=== PATIENT | female | born 1965 | race African-American/Black ===

== ENCOUNTER 2018-08-12 09:45 | Emergency (ER) | payer MEDICARE, MEDICAID ==
[~2018-08-12] VITALS: Ht 160 cm; Wt 90.0 kg
[~2018-08-12 09:45] MED LIST: SEROQUEL; UNK HTN MEDS; [UNRECOGNIZED DRUG - CODE]
[2018-08-12] MEDS ORDERED: HYDROCODONE/ACETAMINOPHEN 5/325MG TABLET PO STA (10:29)
[2018-08-12 11:58] LABS: BASOPHILS % 0.8 % (0.0-2.0); EOSINOPHILS % 0.6 % (0.0-5.0); HEMATOCRIT. 37.8 % (36.0-48.0); HEMOGLOBIN. 12.4 g/dL (12.0-16.0); LYMPHOCYTES % 24.9 % (20.0-50.0); MEAN CORPUSCULAR HEMOGLOBIN 27.9 pg (28.0-32.0); MEAN CORPUSCULAR VOLUME 85.5 fL (81.0-99.0); MEAN PLATELET VOLUME 7.9 fl (7.4-10.4); MONOCYTES % 4.8 % (2.0-8.0); NEUTROPHILS % 68.9 % (40.0-76.0); PLATELET 400 x1000/uL (130-400); RED BLOOD CELL COUNT 4.42 mill/uL (4.2-5.4); RED CELL DISTRIBUTION WIDTH 15.9 % (11.6-14.6)
[2018-08-12 12:02] LABS: CHLORIDE 105 mEq/L (98-107)
[2018-08-12 12:08] LABS: PROTHROMBIN TIME 10.4 sec (9.1-11.1)
[2018-08-12 13:00] VITALS: BP 138/65
== END 2018-08-12 13:08 | disposition home or self-care (01) ==
LOC: ER 10:26
DX: M25.512 Pain in left shoulder (principal); R07.89 Other chest pain; E11.9 Type 2 diabetes mellitus without complications; I10 Essential (primary) hypertension; F32.9 Major depressive disorder, single episode, unspecified; M19.90 Unspecified osteoarthritis, unspecified site; Z98.890 Other specified postprocedural states
CPT/HCPCS: 36415; 71045; 73030; 83880; 84484; 93005; 99284

== ENCOUNTER 2019-04-04 12:54 | Emergency (ER) | payer MEDICARE, MEDICAID ==
[~2019-04-04] VITALS: Ht 160 cm; Wt 91.0 kg
[2019-04-04] MEDS ORDERED: ALBUTEROL (0.083%) 2.5MG/3ML NEB HHN STA (14:38)
[2019-04-04] MEDS ORDERED: ALBUTEROL (0.083%) 2.5MG/3ML NEB ONE (15:00)
[2019-04-04 15:51] VITALS: BP 169/91
== END 2019-04-04 15:57 | disposition home or self-care (01) ==
LOC: ER 12:54
DX: J20.9 Acute bronchitis, unspecified (principal); M19.90 Unspecified osteoarthritis, unspecified site; F32.9 Major depressive disorder, single episode, unspecified; I10 Essential (primary) hypertension; M10.9 Gout, unspecified; F17.210 Nicotine dependence, cigarettes, uncomplicated; Z87.828 Personal history of other (healed) physical injury and trauma
CPT/HCPCS: 71045; 94640; 99283; J7611

== ENCOUNTER 2020-09-10 00:04 | Emergency (ER) | payer MEDICARE, MEDICAID ==
[~2020-09-10] VITALS: Ht 160 cm; Wt 93.0 kg
[2020-09-10] MEDS ORDERED: INDOMETHACIN 25MG CAPSULE PO ONE (01:00)
[2020-09-10] MEDS ORDERED: LIDOCAINE HCL 1% 20ML VIAL (Pyxis) INJ INFIL ONE (01:00)
[2020-09-10] MEDS ORDERED: BUPIVACAINE HCL/PF 0.5% (5MG/ML) 10ML INFIL ONE ×2 (01:00→01:30)
[2020-09-10] MEDS ORDERED: IBUPROFEN 600MG TABLET PO ONE (01:00)
[2020-09-10] MEDS ORDERED: ACETAMINOPHEN 325MG TABLET PO ONE (01:00)
[2020-09-10 01:05] VITALS: BP 154/79
[2020-09-10] MEDS ORDERED: BACITRACIN ZINC OINT UDPKT TOP ONE (01:30)
[2020-09-10] MEDS ORDERED: INDO50CA98 MT (01:49)
== END 2020-09-10 02:40 | disposition home or self-care (01) ==
LOC: ER 00:04
DX: M10.062 Idiopathic gout, left knee (principal); E11.9 Type 2 diabetes mellitus without complications; I10 Essential (primary) hypertension; F32.9 Major depressive disorder, single episode, unspecified; Z87.828 Personal history of other (healed) physical injury and trauma
CPT/HCPCS: 20610; 99283; J3490

== ENCOUNTER 2022-03-11 21:20 | Inpatient (IN) | payer MEDICARE, MEDICAID ==
[~2022-03-11] VITALS: Ht 160 cm; Wt 103.1 kg
[~2022-03-11 21:20] MED LIST changes: +INDO50CA98 MT
[2022-03-12] MEDS ORDERED: LABETALOL HCL VIAL 20 MG/4 ML VIAL IV NR (01:30)
[2022-03-12] MEDS ORDERED: ASPIRIN 81MG TABLET PO ONE (01:30)
[2022-03-12] MEDS: ASPIRIN 81MG TABLET PO NR (02:04)
[2022-03-12 02:13] LABS: BASOPHILS % 0.8 % (0.0-2.0); EOSINOPHILS % 1.5 % (0.0-5.0); HEMATOCRIT. 36.9 % (36.0-48.0); HEMOGLOBIN. 12.1 g/dL (12.0-16.0); LYMPHOCYTES % 38.7 % (20.0-50.0); MEAN CORPUSCULAR VOLUME 82.6 fL (81.0-99.0); MEAN PLATELET VOLUME 7.7 fl (7.4-10.4); PLATELET 371 x1000/uL (130-400); RED BLOOD CELL COUNT 4.46 mill/uL (4.2-5.4); RED CELL DISTRIBUTION WIDTH 15.3 % (11.6-14.6)
[2022-03-12 02:23] LABS: CHLORIDE 103 mEq/L (98-107)
[2022-03-12] MEDS ORDERED: NITROGLYCERIN 0.4MG TABLET SL SL ONE (04:00)
[2022-03-12] MEDS ORDERED: IPRATROPIUM/ALBUTEROL 0.5-3(2.5)MG/3ML NEB NEB PRN (07:15)
[2022-03-12] MEDS ORDERED: NA PHOS,M-B/NA PHOS,DI-BA ENEMA 118ML PR PRN (07:15)
[2022-03-12] MEDS ORDERED: NITROGLYCERIN 0.4MG TABLET SL SL PRN (07:15)
[2022-03-12] MEDS ORDERED: ACETAMINOPHEN 325MG TABLET PO PRN ×2 (07:15)
[2022-03-12] MEDS ORDERED: ENOXAPARIN 40MG/0.4ML SYR SUBCUT SCH (07:15)
[2022-03-12] MEDS ORDERED: DOCUSATE SODIUM 100MG CAPSULE PO PRN (07:15)
[2022-03-12] MEDS ORDERED: ONDANSETRON HCL 4MG/2ML INJ IV PRN (07:15)
[2022-03-12] MEDS ORDERED: MAGNESIUM/ALUMINUM HYDROXIDE/SIMETHICONE 30ML UDC PO PRN (07:15)
[2022-03-12 08:00] VITALS: BP 152/83
[2022-03-12] MEDS ORDERED: POTASSIUM CHLORIDE 20MEQ TABLET SR PO SCH (08:00)
[2022-03-12 08:15] LABS: T4 FREE 0.96 ng/dL (0.76-1.46)
[2022-03-12 08:33] LABS: FOLIC ACID (FOLATE) SERUM >20 ng/mL ng/mL (>5.38); VITAMIN B12 SERUM 643 pg/mL (211-911)
[2022-03-12] MEDS: FAMOTIDINE 20MG TABLET PO SCH ×2 (09:59→21:19)
[2022-03-12] MEDS: ENOXAPARIN 30MG/0.3ML SYR SUBCUT SCH ×2 (09:59→21:19)
[2022-03-12] MEDS: AMLODIPINE 10MG TABLET PO SCH (10:01)
[2022-03-12] MEDS: LOSARTAN POTASSIUM 50 MG TABLET PO SCH (10:01)
[2022-03-12] MEDS: KETOROLAC 15MG/ML VIAL IV PRN ×2 (10:09→21:19)
[2022-03-12] MEDS: GUAIFENESIN 200MG/10ML SUGAR FREE UDC PO PRN ×2 (10:19→16:16)
[2022-03-12 12:00] VITALS: BP 155/86
[2022-03-12 16:00] VITALS: BP 160/97
[2022-03-12] MEDS: CLONIDINE 0.1MG TABLET PO PRN (16:13)
[2022-03-12] MEDS ORDERED: ATOR20TA65 PO (17:08)
[2022-03-12] MEDS ORDERED: AMLO10TA80 PO (17:08)
[2022-03-12] MEDS ORDERED: ALLO100T PO (17:08)
[2022-03-12] MEDS ORDERED: DICL100G31 TP (17:08)
[2022-03-12] MEDS ORDERED: [UNRECOGNIZED DRUG - CODE] PO (17:08)
[2022-03-12] MEDS ORDERED: MIRT7.5T11 PO (17:08)
[2022-03-12] MEDS ORDERED: VENL50TA43 PO (17:08)
[2022-03-12] MEDS ORDERED: CHLO25TA2 PO (17:08)
[2022-03-12] MEDS ORDERED: HYDR-4009 PO (17:09)
[2022-03-12 18:54] LABS: CREATINE KINASE 119 IU/L (26-192)
[2022-03-12 18:59] LABS: CREATINE KINASE MB FRACTION < 1.0 ng/mL (0.5-3.6)
[2022-03-12 20:00] VITALS: BP 142/74
[2022-03-12] MEDS: ZOLPIDEM TARTRATE 5MG TABLET PO PRN (21:19)
[2022-03-12] MEDS: ATORVASTATIN CALCIUM 20MG TABLET PO SCH (21:19)
[2022-03-12 23:37] LABS: CREATINE KINASE 109 IU/L (26-192); CREATINE KINASE MB FRACTION < 1.0 ng/mL (0.5-3.6)
[2022-03-13] VITALS: BP 137/72
[2022-03-13] MEDS: ASPIRIN 81MG TABLET PO NR (01:45)
[2022-03-13 02:41] LABS: *AMPHETAMINES SCREEN URINE NEGATIVE (NEGATIVE); *BARBITURATES SCREEN URINE NEGATIVE (NEGATIVE); *BENZODIAZEPINES SCREEN URINE NEGATIVE (NEGATIVE); *COCAINE SCREEN URINE NEGATIVE (NEGATIVE); CANNABINOID URINE SCREEN NEGATIVE (NEGATIVE); METHADONE URINE SCREEN NEGATIVE (NEGATIVE); OPIATES URINE SCREEN NEGATIVE (NEGATIVE); PHENCYCLIDINE URINE SCREEN NEGATIVE (NEGATIVE)
[2022-03-13 04:00] VITALS: BP 134/88
[2022-03-13 08:00] VITALS: BP 148/82
[2022-03-13] MEDS: LOSARTAN POTASSIUM 50 MG TABLET PO SCH ×2 (09:34→17:03)
[2022-03-13] MEDS: AMLODIPINE 10MG TABLET PO SCH (09:34)
[2022-03-13] MEDS: ENOXAPARIN 30MG/0.3ML SYR SUBCUT SCH ×2 (09:34→21:10)
[2022-03-13] MEDS: FAMOTIDINE 20MG TABLET PO SCH ×2 (09:34→21:11)
[2022-03-13 10:54] LABS: BASOPHILS % 0.6 % (0.0-2.0); EOSINOPHILS % 1.8 % (0.0-5.0); HEMATOCRIT. 35.5 % (36.0-48.0); HEMOGLOBIN. 11.6 g/dL (12.0-16.0); LYMPHOCYTES % 29.9 % (20.0-50.0); MEAN CORPUSCULAR HEMOGLOBIN 27.3 pg (28.0-32.0); MEAN CORPUSCULAR VOLUME 83.3 fL (81.0-99.0); MEAN PLATELET VOLUME 7.8 fl (7.4-10.4); MONOCYTES % 4.9 % (2.0-8.0); NEUTROPHILS % 62.8 % (40.0-76.0); PLATELET 361 x1000/uL (130-400); RED BLOOD CELL COUNT 4.26 mill/uL (4.2-5.4); RED CELL DISTRIBUTION WIDTH 15.1 % (11.6-14.6)
[2022-03-13 10:57] LABS: CHLORIDE 103 mEq/L (98-107)
[2022-03-13] MEDS: GUAIFENESIN 200MG/10ML SUGAR FREE UDC PO PRN (11:02)
[2022-03-13 11:06] LABS: PHOSPHORUS 2.8 mg/dL (2.5-4.9)
[2022-03-13 12:00] VITALS: BP 124/62
[2022-03-13] MEDS ORDERED: MAGNESIUM 2 G PREMIX 50 ML IV NR (13:00)
[2022-03-13] MEDS: ALBUTEROL (0.083%) 2.5MG/3ML NEB HHN SCH ×3 (13:03→21:00)
[2022-03-13 16:00] VITALS: BP 165/88
[2022-03-13 20:00] VITALS: BP 171/87
[2022-03-13] MEDS: ATORVASTATIN CALCIUM 20MG TABLET PO SCH (21:10)
[2022-03-13] MEDS: CLONIDINE 0.1MG TABLET PO PRN (21:11)
[2022-03-13] MEDS: ZOLPIDEM TARTRATE 5MG TABLET PO PRN (21:11)
[2022-03-14] VITALS: BP 119/72
[2022-03-14 04:00] VITALS: BP 112/64
[2022-03-14 08:00] VITALS: BP 129/66
[2022-03-14] MEDS: ENOXAPARIN 30MG/0.3ML SYR SUBCUT SCH ×2 (09:00→20:17)
[2022-03-14] MEDS: AMLODIPINE 10MG TABLET PO SCH (09:00)
[2022-03-14] MEDS: LOSARTAN POTASSIUM 50 MG TABLET PO SCH ×2 (09:00→17:23)
[2022-03-14] MEDS: FAMOTIDINE 20MG TABLET PO SCH ×2 (09:00→20:17)
[2022-03-14] MEDS: ALBUTEROL (0.083%) 2.5MG/3ML NEB HHN SCH ×4 (09:40→22:20)
[2022-03-14 11:46] LABS: BASOPHILS % 0.5 % (0.0-2.0); EOSINOPHILS % 1.3 % (0.0-5.0); HEMATOCRIT. 35.5 % (36.0-48.0); HEMOGLOBIN. 11.7 g/dL (12.0-16.0); LYMPHOCYTES % 37.4 % (20.0-50.0); MEAN CORPUSCULAR HEMOGLOBIN 27.2 pg (28.0-32.0); MEAN CORPUSCULAR VOLUME 82.6 fL (81.0-99.0); MEAN PLATELET VOLUME 7.8 fl (7.4-10.4); MONOCYTES % 4.7 % (2.0-8.0); NEUTROPHILS % 56.1 % (40.0-76.0); PLATELET 374 x1000/uL (130-400); RED BLOOD CELL COUNT 4.29 mill/uL (4.2-5.4)
[2022-03-14 12:00] VITALS: BP 149/81
[2022-03-14 12:50] LABS: CHLORIDE 106 mEq/L (98-107)
[2022-03-14] MEDS: KETOROLAC 15MG/ML VIAL IV PRN (14:27)
[2022-03-14 16:00] VITALS: BP 137/74
[2022-03-14 20:00] VITALS: BP 157/82
[2022-03-14] MEDS: ATORVASTATIN CALCIUM 20MG TABLET PO SCH (20:17)
[2022-03-15] VITALS: BP 165/84
[2022-03-15] MEDS: CLONIDINE 0.1MG TABLET PO PRN (01:39)
[2022-03-15] MEDS: GUAIFENESIN 200MG/10ML SUGAR FREE UDC PO PRN (01:42)
[2022-03-15 04:00] VITALS: BP 127/70
[2022-03-15 08:30] VITALS: BP 122/66
[2022-03-15] MEDS: ENOXAPARIN 30MG/0.3ML SYR SUBCUT SCH (09:02)
[2022-03-15] MEDS: LOSARTAN POTASSIUM 50 MG TABLET PO SCH (09:03)
[2022-03-15] MEDS: AMLODIPINE 10MG TABLET PO SCH (09:03)
[2022-03-15] MEDS: FAMOTIDINE 20MG TABLET PO SCH (09:03)
[2022-03-15] MEDS: ALBUTEROL (0.083%) 2.5MG/3ML NEB HHN SCH (09:57)
[2022-03-15] MEDS ORDERED: ASPI-1406 MT (10:59)
[2022-03-15] MEDS ORDERED: LOSA50TA3 PO (10:59)
[2022-03-15] MEDS ORDERED: ATOR20TA65 PO (10:59)
[2022-03-15] MEDS ORDERED: AMLO10TA80 PO (10:59)
[2022-03-15 11:02] VITALS: BP 122/66
== END 2022-03-15 12:25 | disposition home health service (06) | DRG 206 ==
LOC: ER 21:20 → 7EST 03-12 04:56 → SUPCPDRO 03-12 07:27 → 7EST 03-12 08:44
PROVIDERS: ADMIT Internal Medicine; ATTEND Internal Medicine
DX: M94.0 Chondrocostal junction syndrome [Tietze] (principal); I16.1 Hypertensive emergency; Z68.41 Body mass index [BMI] 40.0-44.9, adult; J06.9 Acute upper respiratory infection, unspecified; R07.9 Chest pain, unspecified; E11.9 Type 2 diabetes mellitus without complications; Z20.822 Contact with and (suspected) exposure to COVID-19; E78.5 Hyperlipidemia, unspecified; E83.42 Hypomagnesemia; E87.6 Hypokalemia; F20.9 Schizophrenia, unspecified; I10 Essential (primary) hypertension; E66.9 Obesity, unspecified; Z91.14 Patient's other noncompliance with medication regimen; Z87.891 Personal history of nicotine dependence
CPT/HCPCS: 36415; 71045; 80048; 80053; 80061; 80305; 82550; 82553; 82607; 82746; 83036; 83540; 83550; 83735; 83880; 84100; 84439; 84443; 84484; 85025; 85379; 87426; 93005; 93306; 93970; 94640; 99285; C9803; J1650; J1885; J3475; J3490